=== PATIENT | female | born 1975 | race Caucasian/White ===

== ENCOUNTER 2022-11-10 11:00 | Emergency (ER) | payer MEDICAID ==
[~2022-11-10] VITALS: Ht 165.1 cm; Wt 83.9 kg
[2022-11-10 11:00] VITALS: BP_SYST 180
[2022-11-10] MEDS ORDERED: ONDANSETRON HCL 4 MG/2 ML VIAL IVP ONE (11:30)
[2022-11-10] MEDS ORDERED: KETOROLAC TROMETHAMINE 30 MG VIAL IVP ONE (11:30)
[2022-11-10] MEDS ORDERED: LABETALOL HCL 20 MG/4 ML CARTRIDGE IVP ONE (11:45)
[2022-11-10 12:00] LABS: BASOPHILS % (AUTO) 0.9 % (0.0-2.0); EOSINOPHILS % (AUTO) 1.4 % (0.0-4.0); HEMATOCRIT 44.5 % (36-48); HEMOGLOBIN 14.9 g/dL (12.0-16.0); LYMPHOCYTES # (AUTO) 1.2 K/uL (1.0-5.5); LYMPHOCYTES % (AUTO) 42.1 % (20.5-51.5); MEAN CORPUSCULAR HEMOGLOBIN 30 pg (27-31); MEAN CORPUSCULAR HGB CONC 34 % (32-36); MEAN CORPUSCULAR VOLUME 89 fL (79.0-98.0); MONOCYTES # (AUTO) 0.2 K/uL (0.0-1.0); MONOCYTES % (AUTO) 7.4 % (1.7-9.3); NEUTROPHILS # (AUTO) 1.4 K/uL (1.8-7.7); NEUTROPHILS % (AUTO) 48.2 % (40.0-70.0); PLATELET COUNT (AUTO) 141 K/uL (130-430); RED BLOOD CELL COUNT(AUTO) 4.99 MIL/uL (4.2-6.2); RED CELL DISTRIBUTION WIDTH 13.2 % (9.0-15.0)
[2022-11-10 12:01] LABS: WHITE BLOOD COUNT (AUTO) 2.8 K/uL (4.8-10.8)
[2022-11-10 12:13] LABS: ANION GAP 5 (5-15); CALCIUM 9.3 mg/dL (8.4-11.0); CHLORIDE 107 mmol/L (98-107); GLUCOSE 94 mg/dL (70-99); UREA NITROGEN, BLOOD 17 mg/dL (8-21)
[2022-11-10 12:21] LABS: ALANINE AMINOTRANSFERASE 16 U/L (12-78); ALBUMIN 3.4 g/dL (3.4-4.8); ASPARTATE AMINOTRANSFERASE 23 U/L (10-37); GFR AFRICAN AMERICAN 68 mL/min (>90); TOTAL BILIRUBIN 0.7 mg/dL (0.0-1.0)
[2022-11-10] MEDS ORDERED: NAPR-1172 PO (12:59)
== END 2022-11-10 13:40 | disposition home or self-care (01) ==
LOC: SED 11:00
DX: M94.0 Chondrocostal junction syndrome [Tietze] (principal); D72.819 Decreased white blood cell count, unspecified; R94.31 Abnormal electrocardiogram [ECG] [EKG]; I10 Essential (primary) hypertension; Z79.899 Other long term (current) drug therapy
CPT/HCPCS: 36415; 71045; 80053; 84484; 85025; 85379; 93005; 99285